=== PATIENT | male | born 1960 | race Two or more races ===

== ENCOUNTER 2019-07-12 16:40 | Emergency (ER) | payer OTHER ==
[~2019-07-12] VITALS: Ht 170.2 cm; Wt 77.1 kg
== END 2019-07-12 19:39 | disposition home or self-care (01) ==
LOC: ER 16:40
DX: T16.1XXA Foreign body in right ear, initial encounter (principal); X58.XXXA Exposure to other specified factors, initial encounter; Y93.89 Activity, other specified; Y92.89 Other specified places as the place of occurrence of the external cause; Y99.8 Other external cause status